=== PATIENT | female | born 1985 | race Hispanic/Latino ===

== ENCOUNTER 2017-08-17 10:35 | Emergency (ER) | payer MEDICAID, OTHER | END 2017-08-17 12:47 | disposition home or self-care (01) | LOC: EDH 10:35 | DX: R42 Dizziness and giddiness (principal); J30.2 Other seasonal allergic rhinitis; F41.1 Generalized anxiety disorder | CPT/HCPCS: 81025 ==

== ENCOUNTER 2018-05-20 22:48 | Emergency (ER) | payer BC ==
[2018-05-20 23:09] LABS: APPEARANCE,URINE Cloudy (CLEAR); BILIRUBIN,URINE Negative (NEGATIVE); COLOR,URINE Yellow (YELLOW); GLUCOSE, URINE (UA) Negative (NEGATIVE); KETONES,URINE Trace mg/dL (NEGATIVE); LEUKOCYTE ESTERASE ,URINE Moderate (NEGATIVE); NITRATE,URINE Negative (NEGATIVE); OCCULT BLOOD,URINE Moderate (NEGATIVE); PH,URINE 5.5 (5.0-8.0); PROTEIN,URINE Negative (NEGATIVE)
[2018-05-20 23:23] LABS: AMORPHOUS SEDIMENT,UR Moderate /LPF (None Seen); BACTERIA,URINE Moderate /HPF (None Seen); MUCUS,URINE Moderate LPF (None Seen); SQUAMOUS EPITHELIAL CELL,UR Moderate /HPF (0-2); TRICHOMONAS,URINE Rare /LPF (None Seen)
[2018-05-21] MEDS ORDERED: METOCLOPRAMIDE 10 MG/2 ML VIAL ONE (00:07)
[2018-05-21] MEDS ORDERED: ONDANSETRON HCL 4 MG/2 ML VIAL ONE (00:07)
[2018-05-21] MEDS ORDERED: SODIUM CHLORIDE 0.9% 1000ML 1,000 ML IV ONE (00:08)
[2018-05-21] MEDS ORDERED: FAMOTIDINE/PF 20 MG/2 ML VIAL IV ONE (00:08)
[2018-05-21 00:30] LABS: BASOPHILS % (AUTO) 0.5 % (0.0-5.0); EOSINOPHILS % (AUTO) 0.6 % (0.0-8.0); HEMATOCRIT 39.5 % (36-48); LYMPHOCYTES % (AUTO) 24.9 % (21.0-51.0); MEAN CORPUSCULAR HEMOGLOBIN 29.7 pg (27.0-33.0); MEAN CORPUSCULAR HGB CONC 33.6 g/dL (32.0-36.0); MEAN CORPUSCULAR VOLUME 88.6 fL (79-99); MONOCYTES % (AUTO) 4.7 % (3.0-13.0); NEUTROPHILS % (AUTO) 69.3 % (40.0-77.0); PLATELET COUNT (AUTO) 304 K/uL (130-400); RED BLOOD CELL COUNT(AUTO) 4.46 MIL/uL (4.00-5.50); RED CELL DISTRIBUTION WIDTH 13.6 % (11.0-15.5); WHITE BLOOD COUNT (AUTO) 10.9 K/uL (4.8-10.8)
[2018-05-21 00:39] LABS: CREATININE 0.7 mg/dL (0.5-1.5); POTASSIUM 3.8 mmol/L (3.5-5.1)
[2018-05-21 00:54] LABS: ALBUMIN 3.4 g/dL (3.5-5.0); BILIRUBIN,TOTAL 0.1 mg/dL (0.2-1.0); TOTAL PROTEIN, SERUM 8.6 g/dL (6.0-8.3)
== END 2018-05-21 02:52 | disposition home or self-care (01) ==
LOC: EDH 22:48
DX: K80.20 Calculus of gallbladder without cholecystitis without obstruction (principal); E86.9 Volume depletion, unspecified; A59.9 Trichomoniasis, unspecified; R11.10 Vomiting, unspecified
CPT/HCPCS: 36415; 76705; 80053; 81001; 81025; 83690; 85025; 96361; 96374; 96375; 99285; J2405; J2765; J3490; J7030

== ENCOUNTER 2020-01-20 21:35 | Emergency (ER) | payer BC ==
[2020-01-20 22:02] LABS: APPEARANCE,URINE Cloudy (CLEAR); BILIRUBIN,URINE Negative (NEGATIVE); COLOR,URINE Yellow (YELLOW); GLUCOSE, URINE (UA) Negative (NEGATIVE); KETONES,URINE Negative (NEGATIVE); LEUKOCYTE ESTERASE ,URINE Small (NEGATIVE); NITRATE,URINE Negative (NEGATIVE); OCCULT BLOOD,URINE Negative (NEGATIVE); PH,URINE 6.5 (5.0-8.0); PROTEIN,URINE Negative (NEGATIVE)
[2020-01-20 22:05] LABS: HCG,QUAL RESULT NEGATIVE (NEGATIVE)
[2020-01-20 22:08] LABS: BASOPHILS % (AUTO) 0.4 % (0.0-5.0); HEMATOCRIT 39.6 % (36-48); LYMPHOCYTES % (AUTO) 35.8 % (21.0-51.0); MEAN CORPUSCULAR HEMOGLOBIN 29.3 pg (27.0-33.0); MEAN CORPUSCULAR HGB CONC 33.3 g/dL (32.0-36.0); MONOCYTES % (AUTO) 4.9 % (3.0-13.0); NEUTROPHILS % (AUTO) 57.7 % (40.0-77.0); PLATELET COUNT (AUTO) 329 K/uL (130-400); RED CELL DISTRIBUTION WIDTH 12.7 % (11.0-15.5); WHITE BLOOD COUNT (AUTO) 10.2 K/uL (4.8-10.8)
[2020-01-20 22:09] LABS: BACTERIA,URINE Few /HPF (None Seen); RBC,URINE 0-1 /HPF (0-1); SQUAMOUS EPITHELIAL CELL,UR Moderate /HPF (0-2)
[2020-01-20 22:10] LABS: MUCUS,URINE Rare LPF (None Seen)
[2020-01-20 22:19] LABS: CREATININE 0.8 mg/dL (0.5-1.5); POTASSIUM 3.6 mmol/L (3.5-5.1)
[2020-01-20 22:25] LABS: ALBUMIN 3.4 g/dL (3.5-5.0); BILIRUBIN,TOTAL 0.2 mg/dL (0.2-1.0); TOTAL PROTEIN, SERUM 8.6 g/dL (6.0-8.3)
[2020-01-20] MEDS ORDERED: IOHEXOL-350 75 ML VIAL IV ONE (23:16)
[2020-01-21] MEDS ORDERED: AZITHROMYCIN 250 MG TABLET PO ONE (00:12)
[2020-01-21] MEDS ORDERED: CEFTRIAXONE SODIUM 1 GM ONE (00:12)
[2020-01-21] MEDS ORDERED: SODIUM CHLORIDE 0.9% 50 ML IV ONE (00:13)
[2020-01-24 14:16] LABS: CHLAMYDIA DNA N.A.AMPLIFY Positive (Negative)
== END 2020-01-21 01:03 | disposition home or self-care (01) ==
LOC: EDH 21:35
DX: L04.9 Acute lymphadenitis, unspecified (principal); N77.1 Vaginitis, vulvitis and vulvovaginitis in diseases classified elsewhere; Z98.890 Other specified postprocedural states
CPT/HCPCS: 36415; 72193; 80053; 81001; 81025; 83690; 85025; 86593; 87210; 87486; 87797; 96374; 99285; J0696; Q9967

== ENCOUNTER 2021-03-22 19:47 | Emergency (ER) | payer BC, OTHER ==
[~2021-03-22] VITALS: Ht 160 cm; Wt 140.6 kg
[2021-03-22 20:05] LABS: APPEARANCE,URINE Clear (CLEAR); BILIRUBIN,URINE Negative (NEGATIVE); COLOR,URINE Yellow (YELLOW); GLUCOSE, URINE (UA) Negative (NEGATIVE); KETONES,URINE Negative (NEGATIVE); LEUKOCYTE ESTERASE ,URINE Negative (NEGATIVE); NITRATE,URINE Negative (NEGATIVE); OCCULT BLOOD,URINE Negative (NEGATIVE); PROTEIN,URINE Negative (NEGATIVE); UROBILINOGEN,URINE 0.2 mg/dL (0.2-1.0)
[2021-03-22 20:08] LABS: HCG,QUAL RESULT NEGATIVE (NEGATIVE)
[2021-03-22] MEDS ORDERED: CYCLOBENZAPRINE HCL 10 MG TABLET PO ONE (21:00)
[2021-03-22] MEDS ORDERED: KETOROLAC 60 MG VIAL (30MG/ML) IM ONE (21:00)
[2021-03-22] MEDS ORDERED: HYDROCODONE/ACETAMINOPHEN 5/325 MG TAB PO ONE (21:00)
[2021-03-22 22:32] VITALS: BP 124/78
[2021-03-22] MEDS ORDERED: NAPR-1180 PO (22:33)
[2021-03-22] MEDS ORDERED: CYCL10TA16 PO (22:33)
[2021-03-22] MEDS ORDERED: CYCLOBENZAPRINE HCL 10 MG TABLET ONE (22:53)
[2021-03-22] MEDS ORDERED: KETOROLAC 60 MG VIAL (30MG/ML) ONE (22:53)
[2021-03-22] MEDS ORDERED: HYDROCODONE/ACETAMINOPHEN 5/325 MG TAB ONE (22:54)
== END 2021-03-22 23:00 | disposition home or self-care (01) ==
LOC: EDH 19:47
DX: M54.50 Low back pain, unspecified (principal)
CPT/HCPCS: 72100; 81003; 81025; 96372; 99284; J1885

== ENCOUNTER 2024-02-16 09:26 | Emergency (ER) | payer SELFPAY ==
[~2024-02-16] VITALS: Ht 157.5 cm; Wt 90.7 kg
[~2024-02-16 09:26] MED LIST: CYCL10TA16 PO; NAPR-1180 PO
[2024-02-16] MEDS: acetaMINOPHEN 500 MG TABLET PO ONE (10:38)
[2024-02-16] MEDS ORDERED: IBUP-2077 PO (10:40)
[2024-02-16 11:07] VITALS: BP 133/81; PULSE 78; RESP 18; TEMP 98.2; O2SAT 98
== END 2024-02-16 11:06 | disposition home or self-care (01) ==
LOC: EDH 09:26
DX: S92.521A Displaced fracture of middle phalanx of right lesser toe(s), initial encounter for closed fracture (principal); E66.9 Obesity, unspecified; Z79.899 Other long term (current) drug therapy; Z98.890 Other specified postprocedural states; W22.8XXA Striking against or struck by other objects, initial encounter; Y93.89 Activity, other specified; Y92.89 Other specified places as the place of occurrence of the external cause; Y99.8 Other external cause status
CPT/HCPCS: 73660